=== PATIENT | female | born 1945 | race Caucasian/White ===

== ENCOUNTER → 2024-07-30 10:29 | Outpatient (REF) | payer MEDICARE, OTHER, SELFPAY ==
[2024-07-30 11:49] LABS: % Basophils 0.8 % (0-2); % Eosinophils 5.4 % (0-6); % Immature Granulocytes 0.2 % (0-0.5); % Lymphocytes 31.8 % (20.5-51.1); % Monocytes 12.5 % (1.7-9.3); % Neutrophils 49.3 % (42.2-75.2); Absolute Eosinophils 0.3 10^3/uL (0-0.7); Absolute Lymphocytes 1.7 10^3/uL (1.2-3.4); Absolute Monocytes 0.7 10^3/uL (0.1-0.6); Absolute Neutrophils 2.6 10^3/uL (1.4-6.5); Hematocrit 39.6 % (37.0-47.0); Hemoglobin 13.2 g/dL (12.0-16.0); Mean Corp Hgb Conc. 33.3 g/dL (33.0-37.0); Mean Corpuscular Hgb 29.4 pg (27.0-31.0); Mean Corpuscular Volume 88.2 fL (81.0-99.0); Mean Platelet Volume 10.2 fL (7.4-10.4); Nucleated Red Blood Cells % 0 %; Platelet Count 232 10^3/uL (130-400); Red Blood Cell Count 4.49 10^6/uL (4.20-5.40); Red Cell Dist. Width 14.2 % (11.5-14.5); White Blood Cell Count 5.2 10^3/uL (4.8-10.8)
[2024-07-30 12:11] LABS: Urine Albumin Negative (Neg - Trace); Urine Bilirubin Negative (Negative); Urine Character Clear (Clear); Urine Color Yellow; Urine Glucose Negative (Negative); Urine Ketone Negative (Negative); Urine Leukocyte 2+ (Negative); Urine Nitrite Negative (Negative); Urine Occult Blood Negative (Negative); Urine Specific Gravity 1.015 (<1.030); Urine Urobilinogen Negative (Neg - 1+); Urine pH 6.5 (5.0-9.0)
[2024-07-30 12:36] LABS: Urine Squamous Cell 16-20 /LPF (Few)
[2024-07-30 12:37] LABS: Urine Red Blood Cell 0-2 /HPF (0-2)
[2024-07-30 12:59] LABS: ALT (SGPT) 19 U/L (0-35); AST (SGOT) 30 U/L (14-36); Albumin 4.4 g/dl (3.5-5.0); Alkaline Phosphatase 75 U/L (38-126); Blood Urea Nitrogen 23 mg/dl (7-17); Calcium 9.1 mg/dl (8.4-10.2); Carbon Dioxide 31 mmol/L (22-30); Chloride 98 mmol/L (98-107); Glucose 96 mg/dl (70-99); HDL Cholesterol 74 mg/dl; LDL Cholesterol, Calculated 126 mg/dl; Magnesium 1.8 mg/dl (1.6-2.3); Potassium 4.1 mmol/L (3.5-5.1); Sodium 142 mmol/L (135-145); Total Bilirubin 0.6 mg/dl (0.2-1.3); Total Cholesterol 214 mg/dl (50-199); Total Protein 7.3 g/dl (6.3-8.2); Triglyceride 70 mg/dl (10-149); Very Low Density Lipoprotein 14 mg/dl (0-30); eGFR > 60.00
[2024-07-30 13:14] LABS: Vitamin D, 25-OH*** 67.5 ng/mL (30-80)
== END ==
LOC: OLABPV 10:29
PROVIDERS: ATTENDING PHYSICIAN Internal Medicine Geriatric Medicine
DX: J44.9 Chronic obstructive pulmonary disease, unspecified (principal); E78.2 Mixed hyperlipidemia; N81.2 Incomplete uterovaginal prolapse; K22.70 Barrett's esophagus without dysplasia; I11.9 Hypertensive heart disease without heart failure; G25.81 Restless legs syndrome; Z79.899 Other long term (current) drug therapy; Z13.89 Encounter for screening for other disorder; K41.30 Unilateral femoral hernia, with obstruction, without gangrene, not specified as recurrent
CPT/HCPCS: 36415; 80053; 80061; 81003; 81015; 82306; 83735; 85025

== ENCOUNTER → 2025-01-10 10:15 | Outpatient (REF) | payer MEDICARE, OTHER, SELFPAY ==
[2025-01-10 12:00] LABS: % Immature Granulocytes 0.2 % (0-0.5); % Monocytes 13.2 % (1.7-9.3); % Neutrophils 41.6 % (42.2-75.2); Absolute Basophils 0.1 10^3/uL (0-0.2); Absolute Eosinophils 0.3 10^3/uL (0-0.7); Absolute Monocytes 0.7 10^3/uL (0.1-0.6); Absolute Neutrophils 2.2 10^3/uL (1.4-6.5); Hematocrit 38.8 % (37.0-47.0); Hemoglobin 12.8 g/dL (12.0-16.0); Mean Corpuscular Hgb 30.1 pg (27.0-31.0); Mean Corpuscular Volume 91.3 fL (81.0-99.0); Mean Platelet Volume 10.2 fL (7.4-10.4); Nucleated Red Blood Cells % 0 %; Platelet Count 270 10^3/uL (130-400); Red Blood Cell Count 4.25 10^6/uL (4.20-5.40); Red Cell Dist. Width 13.1 % (11.5-14.5); White Blood Cell Count 5.2 10^3/uL (4.8-10.8)
[2025-01-10 12:18] LABS: ALT (SGPT) 18 U/L (0-35); AST (SGOT) 26 U/L (14-36); Albumin 4.2 g/dl (3.5-5.0); Alkaline Phosphatase 65 U/L (38-126); Blood Urea Nitrogen 34 mg/dl (7-17); Calcium 9.6 mg/dl (8.4-10.2); Carbon Dioxide 35 mmol/L (22-30); Chloride 95 mmol/L (98-107); Glucose 89 mg/dl (70-99); HDL Cholesterol 81 mg/dl; LDL Cholesterol, Calculated 121 mg/dl; Potassium 3.7 mmol/L (3.5-5.1); Sodium 137 mmol/L (135-145); Total Bilirubin 0.5 mg/dl (0.2-1.3); Total Cholesterol 215 mg/dl (50-199); Total Protein 7.3 g/dl (6.3-8.2); Triglyceride 65 mg/dl (10-149); Very Low Density Lipoprotein 13 mg/dl (0-30); eGFR > 60.00
[2025-01-10 12:22] LABS: NT-proBNP 182 pg/ml
[2025-01-10 12:28] LABS: Free T4 1.85 ng/dl (0.78-2.19); Vitamin D, 25-OH*** 72.4 ng/mL (30-80)
[2025-01-10 12:42] LABS: TSH 0.13 uIU/ml (0.47-4.68)
== END ==
LOC: OLABPV 10:15
PROVIDERS: ATTENDING PHYSICIAN Internal Medicine Geriatric Medicine
DX: E78.2 Mixed hyperlipidemia (principal); J44.9 Chronic obstructive pulmonary disease, unspecified; N81.2 Incomplete uterovaginal prolapse; I11.9 Hypertensive heart disease without heart failure; G25.81 Restless legs syndrome; Z13.89 Encounter for screening for other disorder; K41.30 Unilateral femoral hernia, with obstruction, without gangrene, not specified as recurrent; E20.0 Idiopathic hypoparathyroidism
CPT/HCPCS: 36415; 80053; 80061; 82306; 83880; 84439; 84443; 85025

== ENCOUNTER → 2025-01-17 10:06 | Outpatient (REF) | payer MEDICARE, OTHER, SELFPAY | LOC: RAD 10:06 | PROVIDERS: ATTENDING PHYSICIAN Internal Medicine Geriatric Medicine | DX: E78.2 Mixed hyperlipidemia (principal); J44.9 Chronic obstructive pulmonary disease, unspecified; N81.2 Incomplete uterovaginal prolapse; K22.70 Barrett's esophagus without dysplasia; I11.9 Hypertensive heart disease without heart failure; G25.81 Restless legs syndrome; Z79.899 Other long term (current) drug therapy; Z13.89 Encounter for screening for other disorder; K41.30 Unilateral femoral hernia, with obstruction, without gangrene, not specified as recurrent | CPT/HCPCS: 74246; 74248 ==

== ENCOUNTER → 2025-01-23 14:29 | Outpatient (REF) | payer MEDICARE, OTHER, SELFPAY | LOC: RCS 14:29 | PROVIDERS: ATTENDING PHYSICIAN Internal Medicine Geriatric Medicine | DX: E78.2 Mixed hyperlipidemia (principal); J44.9 Chronic obstructive pulmonary disease, unspecified; N81.2 Incomplete uterovaginal prolapse; K22.70 Barrett's esophagus without dysplasia; I11.9 Hypertensive heart disease without heart failure; G25.81 Restless legs syndrome; Z79.899 Other long term (current) drug therapy | CPT/HCPCS: 93306 ==

== ENCOUNTER → 2025-01-27 07:02 | Outpatient (REF) | payer MEDICARE, OTHER, SELFPAY | LOC: HWRCS 07:02 | PROVIDERS: ATTENDING PHYSICIAN Internal Medicine Geriatric Medicine | DX: E78.2 Mixed hyperlipidemia (principal); J44.9 Chronic obstructive pulmonary disease, unspecified; N81.2 Incomplete uterovaginal prolapse; K22.70 Barrett's esophagus without dysplasia; I11.9 Hypertensive heart disease without heart failure; G25.81 Restless legs syndrome; Z79.899 Other long term (current) drug therapy | CPT/HCPCS: 78452; 93017; A9500; J2785 ==

== ENCOUNTER 2025-04-23 06:14 | Day surgery (SDC) | payer MEDICARE, OTHER, SELFPAY ==
[2025-04-23 11:52] VITALS: BMI 29.3
[2025-04-23 11:53] VITALS: BMI 29.3
[2025-04-23 11:54] VITALS: BP 160/76
[2025-04-23 12:58] VITALS: BP 132/69
[2025-04-23 13:15] VITALS: BP 126/64
[2025-04-23 13:30] VITALS: BP 127/68
== END 2025-04-23 13:35 | disposition home or self-care (01) ==
LOC: SDS 06:14
PROVIDERS: ATTENDING PHYSICIAN Surgery
DX: K44.9 Diaphragmatic hernia without obstruction or gangrene (principal); Q39.9 Congenital malformation of esophagus, unspecified
CPT/HCPCS: 43235

== ENCOUNTER → 2025-04-28 08:20 | Outpatient (REF) | payer MEDICARE, OTHER, SELFPAY ==
[2025-04-28 11:47] LABS: Hematocrit 37.3 % (37.0-47.0); Hemoglobin 11.9 g/dL (12.0-16.0); Mean Corp Hgb Conc. 31.9 g/dL (33.0-37.0); Mean Corpuscular Hgb 28.1 pg (27.0-31.0); Mean Corpuscular Volume 88.2 fL (81.0-99.0); Mean Platelet Volume 9.9 fL (7.4-10.4); Platelet Count 245 10^3/uL (130-400); Red Blood Cell Count 4.23 10^6/uL (4.20-5.40); Red Cell Dist. Width 14.1 % (11.5-14.5); White Blood Cell Count 4.3 10^3/uL (4.8-10.8)
[2025-04-28 14:36] LABS: ALT (SGPT) 16 U/L (0-35); AST (SGOT) 25 U/L (14-36); Albumin 4.3 g/dl (3.5-5.0); Alkaline Phosphatase 60 U/L (38-126); Blood Urea Nitrogen 25 mg/dl (7-17); Calcium 8.8 mg/dl (8.4-10.2); Carbon Dioxide 32 mmol/L (22-30); Chloride 101 mmol/L (98-107); Glucose 82 mg/dl (70-99); Potassium 3.7 mmol/L (3.5-5.1); Sodium 143 mmol/L (135-145); Total Bilirubin 0.5 mg/dl (0.2-1.3); Total Protein 7.2 g/dl (6.3-8.2); eGFR > 60.00
== END ==
LOC: SDSPAT 08:20
PROVIDERS: ATTENDING PHYSICIAN Surgery; FAMILY PHYSICIAN Internal Medicine Geriatric Medicine
DX: Z01.818 Encounter for other preprocedural examination (principal)
CPT/HCPCS: 36415; 80053; 85027; 86850; 86900; 86901; 93005

== ENCOUNTER 2025-05-14 14:39 | Inpatient (IN) | payer MEDICARE, OTHER, SELFPAY ==
[2025-04-28 14:17] VITALS: BMI 28.5
[2025-05-12] VITALS (12 sets, daily range): BP systolic 12–153; BP diastolic 57–85; BMI 28.5
--- NOTE | 2025-05-12 09:07 | HP.FOC2 ---
Focused History & Physical
Chief Complaint
HPI:
Chief Complaint: Symptomatic type III paraesophageal hernia
HPI / Indication for Planned Procedure: Patient is an 80-year-old female with a longstanding history of GERD dating back to 2000. She underwent subsequent endoscopy confirming the presence of a small hiatal hernia. Over the past few years she has
noticed a progression of intermittent nausea, early satiety, dysphagia with her pills, water. Imaging has confirmed the presence of a large type III paraesophageal hernia containing greater than 50% of the stomach within the intrathoracic space
with the typical organoaxial positioning and tortuosity of the distal third of the stomach. She presents today for scheduled operative correction.
Relevant Past Medical History: Other (GERD, hypertension, history of retinal tear, right breast DCIS, hypothyroid,)
Relevant Social History: Negative
Relevant Family History: Negative
Relevant Past Surgical History: Positive for (Right total knee, tonsils, right rotator cuff, D&C, femoral hernia repair, left breast lumpectomy)
Review of Systems
Review of Pertinent Systems: All Systems Negative
Medication
See Medication form for detailed medications: Yes
Medication List (including Herbals & OTC):
biotin 5,000 mcg sublingual tablet 5,000 mcg sublingual DAILY Supplement 05/28/22
triamterene 37.5 mg-hydrochlorothiazide 25 mg capsule 1 cap PO BID Blood pressure 05/28/22
acetaminophen 500 mg tablet 500 mg PO Q6H PRN Leg cramps 04/23/25
clonazepam 0.5 mg tablet 0.25 mg PO HS 04/23/25
cholecalciferol (vitamin D3) 125 mcg (5,000 unit) tablet (Vitamin D3) 125 mcg PO DAILY 05/05/25
fluticasone 100 mcg-salmeterol 50 mcg/dose blistr powdr for inhalation (Advair Diskus) 1 inh inhalation DAILY 05/05/25
magnesium glycinate 100 mg (as glycinate) tablet 1,200 mg PO HS 05/05/25
meclizine 25 mg tablet 25 mg PO PRN PRN Vertigo 05/05/25
multivitamin 1 tab PO DAILY 05/05/25
pantoprazole 40 mg tablet,delayed release (Protonix) 40 mg PO DAILY 05/05/25
polyethylene glycol 400 0.25 % eye drops (Blink Tears) 2 drp ophthalmic (eye) PRN PRN Dry Eyes 05/05/25
turmeric 750 mg PO TID 05/05/25
vit C 250 mg-vit E 90 mg-zinc 40 mg-copper 1 if-yqjpig-rlxqzz capsule (PreserVision AREDS-2) 1 tab PO DAILY 05/05/25
Medications Reviewed: Yes
Allergies and Reactions
Patient has Allergies: Yes
Noted Allergies and Reactions:
Allergy/AdvReac Type Severity Reaction Status Date / Time
oxycodone Allergy Severe Verified 05/05/25 08:18
Nausea
Pertinent Physical Exam
All Other Systems: Negative
Head/Neck: Normal
Lungs: Normal
Heart: Normal
Abdomen: Normal
Extremities: Normal
Neurological: Normal
Diagnosis / Assessment
80-year-old female with symptomatic type III paraesophageal hernia presenting today for scheduled operative correction
Plan / Procedure
Robotic assisted laparoscopic repair paraesophageal hernia with possible fundoplication, possible mesh, intraoperative EGD.
Anesthesia/Sedation to be done by Anesthesia Provider: Yes
--- NOTE | 2025-05-12 09:18 | W.SUR.PREOP ---
Pre-Operative Surgical Note
-
I have examined this patient prior to the performance of the scheduled procedure.
The patient's condition is unchanged from the time of the current History and
Physical and the patient is able to undergo the scheduled procedure.
[2025-05-12] MEDS: TYLENOL 1000 MG PO (10:36)
[2025-05-12] MEDS: NORMOSOL-R/PLASMALYTE-A 1000 IV (10:36)
--- NOTE | 2025-05-12 16:27 | W.IMMPOSTOP ---
Addendum entered and electronically signed by Rui Jung MD 05/12/25 17:32:
#[id number]
Original Note:
Surgical Immed Post Op Note
-
Primary Surgeon: Rui Jung MD
Assisting Surgeon: Sherron BRONSON
Pre-op Diagnosis: Symptomatic Type III PEH
Post-op Diagnosis: Symptomatic Type III PEH
Procedure Performed: RAL repair PEH with anterior gastropexy; EGD
Anesthesia Type: GETA + 0.25% Marcaine with epi
Specimen / Cultures: none
Estimated Blood Loss: 20mL
Complications: none immediate
Operative Findings: Large type III PEH containing about 50-60% stomach within the hiatal hernia. Few omental adhesions at umbilical area lysed for placement of 8mm trochar site. No bowel adhesions encountered.
Hernia sac and contents completely reduced. Anterior hernia sack excised and discarded. Right capnothorax d/t right chest pleural entry during proximal extent of esophageal mobilization. Right and left vagus nerves identified. Posterior crural
repair with O silk simple interrupted stitch x 4; right anterior cural repair with O Silk stitch x 2. Anterior gastropexy; 3 simple interrupted 0 silk from fundus to left diaphragm and additional 4 simple interrupted 0 silk at left costal margin.
Drain: 19 corye
patients daughter updated post op via phone call
[2025-05-12] MEDS: DILAUDID 0.25 MG IV (17:30)
[2025-05-12] MEDS: NSS 1000 IV (18:50)
[2025-05-12] MEDS: DILAUDID 0.5 MG IV (23:53)
[2025-05-13 03:04] VITALS: BP 115/59
[2025-05-13] MEDS: TORADOL 10 MG IV ×3 (05:40→21:56)
[2025-05-13 06:44] LABS: Hematocrit 36.6 % (37.0-47.0); Hemoglobin 11.8 g/dL (12.0-16.0); Mean Corp Hgb Conc. 32.2 g/dL (33.0-37.0); Mean Corpuscular Volume 87.6 fL (81.0-99.0); Platelet Count 256 10^3/uL (130-400); Red Cell Dist. Width 14.5 % (11.5-14.5)
[2025-05-13 07:00] VITALS: BP 108/54
[2025-05-13 07:04] LABS: Blood Urea Nitrogen 16 mg/dl (7-17); Calcium 7.7 mg/dl (8.4-10.2); Carbon Dioxide 30 mmol/L (22-30); Chloride 100 mmol/L (98-107); Estimated Creatinine Clearance 49 ml/min; Glucose 100 mg/dl (70-99); Potassium 3.4 mmol/L (3.5-5.1); Sodium 138 mmol/L (135-145); eGFR > 60.00
--- NOTE | 2025-05-13 07:21 | W.PN.GS2 ---
Today's Communication / Plan
-
`
Assessment / Plan
-
Assessment: POD #1 status post RAL PEH repair with anterior gastropexy; EGD
AFVSS
Doing well postop
Adequate pain control
Plan: Multimodal postoperative pain control options
Encouraged up out of bed to chair and ambulation today, IS at bedside for use
Mild hypokalemia, 3.4 -replace with IV K rider
Triamterene/HCTZ -for history of hypertension
Clonazepam 0.25 mg p.o. nightly -Home med
PPI IV today
Lovenox/SCDs/ambulation for VTE prophylaxis
Subjective Data
-
Date of Service: May 13, 2025
Patient seen and examined
Pain postoperatively is predominantly in the left shoulder/scapular region as is typically the case
Incisional pain minimal
No nausea, no vomiting, no GERD
Objective Data
-
Intake and Output
05/12/25 05/13/25 05/14/25
06:59 06:59 06:59
Intake Total 490 / 490
Output Total 637 / 637
Balance -147 / -147
Intake:
Oral fluids 240 / 240
IV fluids (Total) 250 / 250
Normosol 250 / 250
Output:
Drain Output (Total)
Left Lower Abdomen Benjamín-
Quintanilla A
Urine, Elkins 625 / 625
Vital Signs
Temp Pulse Resp BP Pulse Ox
97.6 F 66 16 115/59 99
05/13/25 03:04 05/13/25 03:04 05/13/25 03:04 05/13/25 03:04 05/13/25 03:04
Lab Results
05/13/25 05:47
05/13/25 05:47
Calcium 7.7 mg/dl (8.4-10.2) L 05/13/25 05:47
Physical Exam
-
NAD AAO x 3
ABD: Soft, nondistended, minimal incisional tenderness
Incisions with glue dressings
ZAKI bulb to compression with scant serosanguineous fluid
Patient has a elkins catheter: No
[2025-05-13] MEDS: ADVAIR HFA 45/21 MCG INHALER 2 PUFF INH (07:30)
[2025-05-13] MEDS: KCL 260 MEQ IV (08:14)
[2025-05-13] MEDS: DYAZIDE 1 CAPSULE PO ×2 (08:15→21:57)
[2025-05-13] MEDS: NSS (PRESERVATIVE FREE) 10 ML IV (08:15)
[2025-05-13] MEDS: PROTONIX IV 40 MG IV (08:16)
[2025-05-13] MEDS: NSS 1000 IV (09:04)
[2025-05-13] MEDS: TYLENOL 500 MG PO (11:30)
[2025-05-13 15:00] VITALS: BP 116/57
--- NOTE | 2025-05-13 15:21 | CM ---
Reviewed the chart notes and spoke with the patient at the bedside. The patient resides alone in independent apartment at [place]. The patient reports no DME/VN/SNF in the past. The patient confirmed her pharmacy of choice is [facility].
The patient reports that she will have caregivers for the next several days (friends and daughter). Patient currently with ZAKI drain. CM continues to be available to patient/family and is monitoring medical plan for needs at discharge.
Plan: Discharge back to home when medically stable.
[2025-05-13] MEDS: LOVENOX 30 MG SC (17:31)
[2025-05-13] MEDS: NSS IV (17:32)
[2025-05-13] MEDS: TYLENOL 650 MG PO ×2 (17:34→23:43)
[2025-05-13] MEDS: KLONOPIN 0.25 MG PO ×2 (21:57→23:56)
[2025-05-13 22:16] VITALS: BP 120/61
[2025-05-14] MEDS: TORADOL 10 MG IV ×2 (04:34→11:22)
[2025-05-14 06:56] LABS: Hematocrit 31.9 % (37.0-47.0); Hemoglobin 10.5 g/dL (12.0-16.0); Mean Corp Hgb Conc. 32.9 g/dL (33.0-37.0); Mean Corpuscular Volume 86.7 fL (81.0-99.0); Platelet Count 233 10^3/uL (130-400); Red Cell Dist. Width 14.6 % (11.5-14.5)
--- NOTE | 2025-05-14 07:09 | W.PN.GS2 ---
Today's Communication / Plan
-
`
Assessment / Plan
-
Assessment: POD #2 status post RAL PEH repair with anterior gastropexy; EGD
AFVSS
post op pain
still on supplemental oxygen post op
ZAKI expected character and quanitity
post op hgb 10.5 - acute blood loss anemia from operative blood loss and also dilutional from IVFs
Plan: Multimodal postoperative pain control options
Encouraged up out of bed to chair and ambulation today, IS at bedside for use
Triamterene/HCTZ -for history of hypertension
Clonazepam 0.25 mg p.o. nightly and magnesium glycinate for restless leg/sleep -Home med
PPI IV today
miralax this AM
Lovenox/SCDs/ambulation for VTE prophylaxis
dispo: possible d/c over next 24hrs if weans off oxygen and improved pain control
Subjective Data
-
Date of Service: May 14, 2025
pt seen and examined
a bit more pain in upper abdomen/left costal margin overnight and into this AM, particularly with deep breathing
belching a bit, no nausea/vomiting
no flatus yet
Objective Data
-
Intake and Output
05/13/25 05/14/25 05/15/25
06:59 06:59 06:59
Intake Total 490 / 490 1080 / 1080
Output Total 649 / 649 150 / 150
Balance -159 / -159 930 / 930
Intake:
Oral fluids 240 / 240 1080 / 1080
IV fluids (Total) 250 / 250
Normosol 250 / 250
Output:
Drain Output (Total) 24 / 24
Left Lower Abdomen Benjamín- 24 /
Quintanilla A
Urine, Velez 625 / 625
Urine, Voided 150 / 150
Other:
Number of approximated SMALL 1
amounts of urine
Number of approximated MODERATE 1
amounts of urine
Number of approximated LARGE 1
amounts of urine
Vital Signs
Temp Pulse Resp BP Pulse Ox
98.4 F 84 18 120/61 95
05/13/25 22:16 05/13/25 22:16 05/13/25 22:16 05/13/25 22:16 05/14/25 04:53
Lab Results
05/14/25 06:10
Calcium 7.7 mg/dl (8.4-10.2) L 05/13/25 05:47
Physical Exam
-
NAD AAOx3
ABD: softly distended, mild TTP at incision sites
incisions with glue dressings
ZAKI with light SSF
[2025-05-14 07:26] LABS: Blood Urea Nitrogen 17 mg/dl (7-17); Calcium 7.7 mg/dl (8.4-10.2); Carbon Dioxide 35 mmol/L (22-30); Chloride 101 mmol/L (98-107); Estimated Creatinine Clearance 49 ml/min; Glucose 88 mg/dl (70-99); Potassium 3.4 mmol/L (3.5-5.1); Sodium 135 mmol/L (135-145); eGFR > 60.00
[2025-05-14 07:30] VITALS: BP 119/67
[2025-05-14] MEDS: ADVAIR HFA 45/21 MCG INHALER 2 PUFF INH (07:45)
[2025-05-14] MEDS: PROTONIX IV 40 MG IV (09:02)
[2025-05-14] MEDS: DYAZIDE 1 CAPSULE PO (09:02)
[2025-05-14] MEDS: KCL 270 MEQ IV (09:02)
[2025-05-14] MEDS: NSS (PRESERVATIVE FREE) 10 ML IV (09:02)
[2025-05-14] MEDS: MIRALAX 17 GRAMS PO (09:04)
[2025-05-14] MEDS: NSS IV (09:29)
--- NOTE | 2025-05-14 12:21 | W.PN.SURGUPD ---
Surgical Update
Surgical Update
pt seen in follow up
doing well ambulating, off supplemental O2
pain controlled
feels ready for d/c
ZAKI removed
--- NOTE | 2025-05-14 12:25 | W.DS.TRANS ---
DC Summary - Network Security Engineer
-
Discharge Instructions:
Sleep Apnea Risk Low
Discharge Diagnosis/Procedures Paraesophageal hernia. Robotic assisted
laparoscopic repair paraesophageal hernia with
gastropexy
Additional Diets See attached dietary recommendations as outlined
below
Activity No strenuous activity
Additional Activity No lifting over 15 pounds for 12 weeks postop.
Routine daily activities, walking, standing,
stairs and light activities are all okay as
tolerated.
Driving Restrictions No driving for 3 to 5 days or if using narcotics
Bathing Restrictions OK to Shower
Wound Care Glue at surgical sites typically peels off in 2
to 3 weeks. cover old drain site with dry gauze
or bandaid daily until dry.
Instructions:
Stand-Alone Forms:
Changes to Home Medications: No
Discharge Medications:
DC Medications w/original date entered in [facility]
biotin 5,000 mcg sublingual tablet 5,000 mcg sublingual DAILY Supplement 05/28/22
triamterene 37.5 mg-hydrochlorothiazide 25 mg capsule 1 cap PO BID Blood pressure 05/28/22
clonazepam 0.5 mg tablet 0.25 mg PO HS 04/23/25
cholecalciferol (vitamin D3) 125 mcg (5,000 unit) tablet (Vitamin D3) 125 mcg PO DAILY 05/05/25
fluticasone 100 mcg-salmeterol 50 mcg/dose blistr powdr for inhalation (Advair Diskus) 1 inh inhalation DAILY 05/05/25
magnesium glycinate 100 mg (as glycinate) tablet 1,200 mg PO HS 05/05/25
meclizine 25 mg tablet 25 mg PO PRN PRN Vertigo 05/05/25
multivitamin 1 tab PO DAILY 05/05/25
pantoprazole 40 mg tablet,delayed release (Protonix) 40 mg PO DAILY 05/05/25
polyethylene glycol 400 0.25 % eye drops (Blink Tears) 2 drp ophthalmic (eye) PRN PRN Dry Eyes 05/05/25
turmeric 750 mg PO TID 05/05/25
vit C 250 mg-vit E 90 mg-zinc 40 mg-copper 1 iq-bbojwh-qpqqde capsule (PreserVision AREDS-2) 1 tab PO DAILY 05/05/25
acetaminophen 650 mg tablet,extended release 650 mg PO Q8H PRN pain 05/12/25
ondansetron 4 mg disintegrating tablet 4 mg PO Q8HPRN PRN nausea/vomiting #10 tabs 05/14/25
tramadol 50 mg tablet 25 - 50 mg (0.5 - 1 x 50 mg) PO Q6HPRN PRN severe pain/breakthrough pain #5 tabs 05/14/25
Home Medication Changes
Pending Results: No
--- NOTE | 2025-05-14 12:31 | CM ---
Reviewed the chart notes and spoke with the patient at the bedside. Patient for discharge to home today. Patient has family and friends who will be staying with her to assist. CM continues to be available to patient/family and is monitoring
medical plan for needs at discharge.
Plan: Discharge to home today. No additional needs anticipated.
[2025-05-14 14:55] VITALS: BP 116/61
== END 2025-05-14 15:38 | disposition home or self-care (01) | DRG 328 ==
LOC: 2 NORTH 14:39
PROVIDERS: ADMITTING PHYSICIAN Surgery; FAMILY PHYSICIAN Internal Medicine Geriatric Medicine
PROC: 8E0W4CZ Robotic Assisted Procedure of Trunk Region, Percutaneous Endoscopic Approach (ICD-10-PCS; 2025-05-12)
PROC: 0BQT4ZZ Repair Diaphragm, Percutaneous Endoscopic Approach (ICD-10-PCS; 2025-05-12)
PROC: 0DS64ZZ Reposition Stomach, Percutaneous Endoscopic Approach (ICD-10-PCS; 2025-05-12)
DX: K44.9 Diaphragmatic hernia without obstruction or gangrene (principal); K66.0 Peritoneal adhesions (postprocedural) (postinfection); E03.9 Hypothyroidism, unspecified; I10 Essential (primary) hypertension; Z86.000 Personal history of in-situ neoplasm of breast
CPT/HCPCS: 80048; 85027; 94640; C1776

== ENCOUNTER → 2025-07-08 12:09 | Outpatient (REF) | payer MEDICARE, OTHER, SELFPAY ==
[2025-07-08 13:15] LABS: Hematocrit 36.1 % (37.0-47.0); Hemoglobin 11.8 g/dL (12.0-16.0); Mean Corp Hgb Conc. 32.7 g/dL (33.0-37.0); Mean Corpuscular Volume 89.4 fL (81.0-99.0); Nucleated Red Blood Cells % 0 %; Platelet Count 207 10^3/uL (130-400); Red Cell Dist. Width 15.0 % (11.5-14.5)
[2025-07-08 13:37] LABS: ALT (SGPT) 15 U/L (0-35); AST (SGOT) 23 U/L (14-36); Albumin 4.1 g/dl (3.5-5.0); Alkaline Phosphatase 54 U/L (38-126); Blood Urea Nitrogen 25 mg/dl (7-17); Calcium 9.3 mg/dl (8.4-10.2); Carbon Dioxide 35 mmol/L (22-30); Chloride 99 mmol/L (98-107); Glucose 100 mg/dl (70-99); Potassium 3.5 mmol/L (3.5-5.1); Sodium 138 mmol/L (135-145); Total Protein 6.7 g/dl (6.3-8.2); eGFR > 60.00
[2025-07-08 14:03] LABS: TSH 3.31 uIU/ml (0.47-4.68)
== END ==
LOC: OLABPV 12:09
PROVIDERS: ATTENDING PHYSICIAN Internal Medicine Geriatric Medicine
DX: E78.2 Mixed hyperlipidemia (principal); J44.9 Chronic obstructive pulmonary disease, unspecified; K22.70 Barrett's esophagus without dysplasia; I11.9 Hypertensive heart disease without heart failure; G25.81 Restless legs syndrome; Z79.899 Other long term (current) drug therapy; Z13.89 Encounter for screening for other disorder; E03.9 Hypothyroidism, unspecified
CPT/HCPCS: 36415; 80053; 84439; 84443; 85025

== ENCOUNTER → 2025-07-11 09:40 | Outpatient (REF) | payer MEDICARE, OTHER, SELFPAY | LOC: RAD 09:40 | PROVIDERS: ATTENDING PHYSICIAN Surgery; FAMILY PHYSICIAN Internal Medicine Geriatric Medicine | DX: R13.10 Dysphagia, unspecified (principal); R12 Heartburn | CPT/HCPCS: 74246 ==